=== PATIENT | male | born 1930 | race Caucasian/White ===

== ENCOUNTER 2016-07-01 19:15 | Inpatient (IN) | payer MEDICARE, OTHER ==
[~2016-07-01] VITALS: Ht 167.6 cm; Wt 84.0 kg
[2016-07-01 19:27] VITALS: BP 125/86; PULSE 88; TEMP 98.5
[2016-07-01] MEDS ORDERED: ASPIRIN 81M81 MG/TA2 PO (19:49)
[2016-07-01] MEDS ORDERED: PRILOSEC 20MG20 MG PO (19:50)
[2016-07-01] MEDS ORDERED: PROAIR HFA0.09 MG/AC IH (19:50)
[2016-07-01] MEDS ORDERED: BIOFREEZE 0.2%-1 GE1 TOP (19:51)
[2016-07-01] MEDS ORDERED: LIPITOR 10MG10 MG PO (19:51)
[2016-07-01] MEDS ORDERED: CLARITIN 1010 MG/TAB PO (19:51)
[2016-07-01] MEDS ORDERED: SINGULAIR 110 MG/TAB PO (19:53)
[2016-07-01] MEDS ORDERED: RESTASIS 60VL (19:54)
[2016-07-01] MEDS ORDERED: UROXATRAL10 M1 PO (19:55)
[2016-07-01] MEDS ORDERED: PRESERVISION1 SGL PO (19:55)
[2016-07-01 20:00] VITALS: BP 135/83; PULSE 81; TEMP 97.9
[2016-07-01 20:38] LABS: MAGNESIUM 2.2 mg/dL (1.6-2.3)
[2016-07-01 20:53] LABS: TROPONIN-I 0.057 ng/mL (0.000-0.034)
[2016-07-01 23:18] LABS: PH 7 (5-8); SQUAMOUS EPITHELIAL None Seen /hpf; URINE APPEARANCE Clear; URINE BACTERIA None Seen /hpf; URINE BILIRUBIN Negative (NEGATIVE); URINE BLOOD Negative (NEGATIVE); URINE COLOR Yellow; URINE GLUCOSE Negative (NEGATIVE); URINE KETONE Negative (NEGATIVE); URINE RBC 0-2 /hpf; URINE UROBILINOGEN Negative (NEGATIVE); URINE WBC 0-2 /hpf
[2016-07-01 23:51] LABS: PARTIAL THROMBOPLASTIN TIME 27.6 SECONDS (26.0-37.0)
[2016-07-02] VITALS (10 sets, daily range): BP systolic 102–141; BP diastolic 47–88; PULSE 65–89; TEMP 97.8–98.2
[2016-07-02 05:46] LABS: BASO % 0.3 % (0.0-2.0); EOS # 0.2 (0.0-0.7); EOS % 2.6 % (0-4.0); GRAN # 4.5 (1.4-6.5); GRAN % 62.1 % (42.2-75.2); HEMATOCRIT 36.2 % (42.0-52.0); HEMOGLOBIN 11.9 g/dl (13.5-18.0); LYMPH # 1.6 (1.2-3.4); LYMPH % 21.9 % (20.0-51.0); MEAN CELL VOLUME 87 fl (80.0-100.0); MEAN CORPUSCULAR HEMOGLOBIN 29 pg (27.0-31.0); MEAN CORPUSCULAR HGB CONC 33 g/dl (33.0-37.0); MEAN PLATELET VOLUME 9.8 fl (7.4-10.4); MONO # 0.9 (0.1-0.6); MONO % 12.7 % (1.7-9.3); PLATELET COUNT 154 K/mm3 (130-400); RED BLOOD COUNT 4.17 M/mm3 (4.20-5.60); REDCELL DISTRIBUTION WIDTH-CV 13.3 % (11.5-14.5); WHITE BLOOD COUNT 7.3 K/mm3 (4.8-10.8)
[2016-07-02 05:59] LABS: CALCIUM 8.7 mg/dL (8.4-10.2); CREATININE, serum 0.9 mg/dL (0.66-1.25); POTASSIUM 4.3 mmol/L (3.4-5.0)
[2016-07-02 06:12] LABS: TROPONIN-I 0.06 ng/mL (0.000-0.034)
[2016-07-03] VITALS (8 sets, daily range): BP systolic 105–173; BP diastolic 52–84; PULSE 47–72; TEMP 97.5–98.7
[2016-07-03 07:57] LABS: MEAN CELL VOLUME 88 fl (80.0-100.0); MEAN CORPUSCULAR HGB CONC 33 g/dl (33.0-37.0); MEAN PLATELET VOLUME 10.2 fl (7.4-10.4); PLATELET COUNT 185 K/mm3 (130-400); RED BLOOD COUNT 4.11 M/mm3 (4.20-5.60); REDCELL DISTRIBUTION WIDTH-CV 13.2 % (11.5-14.5); WHITE BLOOD COUNT 7.3 K/mm3 (4.8-10.8)
[2016-07-03 07:58] LABS: HEMOGLOBIN 11.9 g/dl (13.5-18.0); MEAN CORPUSCULAR HEMOGLOBIN 29 pg (27.0-31.0)
[2016-07-04 03:56] VITALS: BP 146/61; PULSE 82; TEMP 97.6
[2016-07-04 07:50] VITALS: BP 111/57; PULSE 43; TEMP 98.1
[2016-07-04 11:23] VITALS: BP 142/97; PULSE 68; TEMP 98.3
[2016-07-04] MEDS ORDERED: AMOXICILLIN 8751 TAB PO (12:39)
[2016-07-04] MEDS ORDERED: ZEBETA 5MG5 MG PO (12:39)
== END 2016-07-04 18:03 | disposition home or self-care (01) | DRG 261 ==
LOC: IMCU 19:15 → MEDICAL 07-02 19:40
PROVIDERS: Nurse Practitioner Family
PROC: 0JH632Z Insertion of Monitoring Device into Chest Subcutaneous Tissue and Fascia, Percutaneous Approach (ICD-10-PCS; principal; 2016-07-03)
DX: I95.1 Orthostatic hypotension (principal); S06.0X1A Concussion with loss of consciousness of 30 minutes or less, initial encounter; R47.01 Aphasia; I45.2 Bifascicular block; W18.30XA Fall on same level, unspecified, initial encounter; I10 Essential (primary) hypertension; J45.909 Unspecified asthma, uncomplicated; J06.9 Acute upper respiratory infection, unspecified; J01.01 Acute recurrent maxillary sinusitis; J01.21 Acute recurrent ethmoidal sinusitis; I25.10 Atherosclerotic heart disease of native coronary artery without angina pectoris; Z95.5 Presence of coronary angioplasty implant and graft; Z87.891 Personal history of nicotine dependence; F03.90 Unspecified dementia, unspecified severity, without behavioral disturbance, psychotic disturbance, mood disturbance, and anxiety
CPT/HCPCS: 99223-AI; 99233-AI; 99239; A9502; A9585; C1764; J1644; J1650; J2785; J7030

== ENCOUNTER 2017-01-27 16:15 | Inpatient (IN) | payer MEDICARE, OTHER ==
[~2017-01-27] VITALS: Ht 152.4 cm; Wt 83.6 kg
[~2017-01-27 16:15] MED LIST: AMOXICILLIN 8751 TAB PO; ASPIRIN 81M81 MG/TA2 PO; BIOFREEZE 0.2%-1 GE1 TOP; CLARITIN 1010 MG/TAB PO; LIPITOR 10MG10 MG PO; PRESERVISION1 SGL PO; PRILOSEC 20MG20 MG PO; PROAIR HFA0.09 MG/AC IH; RESTASIS 60VL; SINGULAIR 110 MG/TAB PO; UROXATRAL10 M1 PO; ZEBETA 5MG5 MG PO
[2017-02-11 08:35] VITALS: BP 127/65; PULSE 71; TEMP 97.9
[2017-02-11 09:40] LABS: HEMATOCRIT 38.4 % (42.0-52.0); HEMOGLOBIN 12.5 g/dl (13.5-18.0); MEAN CELL VOLUME 87 fl (80.0-100.0); MEAN CORPUSCULAR HEMOGLOBIN 28 pg (27.0-31.0); MEAN CORPUSCULAR HGB CONC 33 g/dl (33.0-37.0); MEAN PLATELET VOLUME 9.8 fl (7.4-10.4); PLATELET COUNT 173 K/mm3 (130-400); RED BLOOD COUNT 4.43 M/mm3 (4.20-5.60); REDCELL DISTRIBUTION WIDTH-CV 13.3 % (11.5-14.5)
[2017-02-11 09:44] LABS: INR 1.1 (0.8-3.0); PROTHROMBIN TIME 11.7 SECONDS (9.7-12.8)
[2017-02-11 09:54] LABS: ADJUSTED CALCIUM 9.2 mg/dL (8.4-10.2); BILIRUBIN,TOTAL 0.8 mg/dL (0.0-1.0); CALCIUM 9.2 mg/dL (8.4-10.2); CREATININE, serum 1.16 mg/dL (0.66-1.25); MAGNESIUM 2.2 mg/dL (1.6-2.3); POTASSIUM 4.2 mmol/L (3.4-5.0); TOTAL PROTEIN 7.6 gm/dL (6.4-8.2)
[2017-02-11 11:41] VITALS: BP 139/65; PULSE 64; TEMP 97.8
[2017-02-11 16:19] VITALS: BP 122/52; PULSE 64; TEMP 97.9
[2017-02-11 20:22] VITALS: BP 120/54; PULSE 63; TEMP 97.6
[2017-02-11 23:25] VITALS: BP 136/74; PULSE 66; TEMP 98
[2017-02-12 03:40] VITALS: BP 141/64; PULSE 62; TEMP 98
[2017-02-12 08:37] VITALS: BP 144/64; PULSE 60; TEMP 98.1
[2017-02-12 12:17] VITALS: BP 129/76; PULSE 64; TEMP 97.6
[2017-02-12 16:17] VITALS: BP 122/52; PULSE 68; TEMP 97.4
[2017-02-12 19:55] VITALS: BP 132/54; PULSE 61; TEMP 99.2
[2017-02-12 23:25] LABS: IEPS IGA 233 mg/dL (101-645); IEPS IGG 1531 mg/dL (540-1822); IEPS TP 7.2 g/dL (6.0-7.6)
[2017-02-12 23:37] VITALS: BP 124/59; PULSE 59; TEMP 98.1
[2017-02-13 03:35] VITALS: BP 144/63; PULSE 66; TEMP 98.2
[2017-02-13 08:00] VITALS: BP 122/59; PULSE 57; TEMP 97.7
[2017-02-13 11:09] VITALS: BP 136/53; PULSE 59; TEMP 97.8
[2017-02-13 15:25] VITALS: BP 148/94; PULSE 60; TEMP 97.6
[2017-02-13 20:10] VITALS: BP 126/54; PULSE 70; TEMP 97.5
[2017-02-13 23:43] VITALS: BP 127/59; PULSE 94; TEMP 97.6
[2017-02-14 04:23] VITALS: BP 148/52; PULSE 60; TEMP 97.4
[2017-02-14 08:50] VITALS: BP 148/52; PULSE 53; TEMP 98.1
[2017-02-14 12:32] VITALS: BP 132/55; PULSE 55; TEMP 97.5
[2017-02-14 12:38] LABS: CADMIUM BLOOD <0.2 ng/mL (0.0-4.9); MERCURY,SERUM <1 ng/mL (0-9)
[2017-02-14 14:06] LABS: .COPPER,S 1.39 mcg/mL (())
[2017-02-14 15:36] LABS: ALBUMIN FRACTION 3.6 g/dL (2.6-4.5); ALBUMIN PERCENT 49.7 % (48.7-61.8); ALPHA 1 FRACTION 0.4 g/dL (0.3-0.5); ALPHA 1 PERCENT 5.3 % (3.4-8.3); ALPHA 2 FRACTION 0.8 g/dL (0.6-1.2); BETA 1 FRACTION 0.4 g/dL (0.4-0.6); BETA 2 PERCENT 18.7 % (3.8-7.7); IEPS GAMMA FRACTION 0.7 g/dL (0.4-1.7); IEPS GAMMA PERCENTAGE 9.3 % (8.1-23.0); IEPS IGM 56 mg/dL (22-240); IEPS MON1E 1.2 g/dL (())
[2017-02-14 16:00] VITALS: BP 146/66; PULSE 50; TEMP 98.6
[2017-02-14 19:08] LABS: TISSUE TRANSGLU IGA <1.2 U/mL (()); TISSUE TRANSGLU IGG <1.2 U/mL (())
[2017-02-14 19:11] VITALS: BP 126/62; PULSE 53; TEMP 97.4
[2017-02-14 22:35] VITALS: BP 125/61; PULSE 57; TEMP 98
[2017-02-15 02:39] VITALS: BP 132/67; PULSE 46; TEMP 98.5
[2017-02-15 08:47] VITALS: BP 128/52; PULSE 55; TEMP 98
[2017-02-15 12:13] VITALS: BP 132/63; PULSE 86; TEMP 97
[2017-02-18 12:08] LABS: VITAMIN E 15.2 mg/L (())
== END 2017-02-15 13:13 | disposition home or self-care (01) | DRG 310 ==
LOC: MEDICAL 02-11 08:12
PROVIDERS: Internal Medicine Cardiovascular Disease; Psychiatry & Neurology Neurology
DX: I48.0 Paroxysmal atrial fibrillation (principal); I25.10 Atherosclerotic heart disease of native coronary artery without angina pectoris; Z95.5 Presence of coronary angioplasty implant and graft; I10 Essential (primary) hypertension; J45.909 Unspecified asthma, uncomplicated; G25.3 Myoclonus

== ENCOUNTER 2017-09-19 11:45 | Observation (INO) | payer MEDICARE, OTHER ==
[~2017-09-19] VITALS: Ht 167.6 cm; Wt 84.7 kg
[2017-09-19] MEDS ORDERED: LIPITOR 10MG10 MG PO (13:02)
[2017-09-19] MEDS ORDERED: PRINIVIL5 MG PO (13:46)
[2017-09-19 14:28] VITALS: BP 188/76; PULSE 79; TEMP 97.8
[2017-09-19 15:10] LABS: ARTERIAL BLD GAS O2 SATURATION 95.7 % (92-100); ARTERIAL BLOOD GAS BASE EXCESS -2.8 (-2-2); ARTERIAL BLOOD GAS PCO2 33.2 mmHg (35-45); ARTERIAL BLOOD GAS PO2 78.2 mmHg (80-100); ARTERIAL BLOOD GAS pH 7.42 (7.35-7.45)
[2017-09-19 17:02] LABS: HEMATOCRIT 37.6 % (42.0-52.0); HEMOGLOBIN 12.5 g/dl (13.5-18.0); MEAN CELL VOLUME 87 fl (80.0-100.0); MEAN CORPUSCULAR HEMOGLOBIN 29 pg (27.0-31.0); MEAN CORPUSCULAR HGB CONC 33 g/dl (33.0-37.0); MEAN PLATELET VOLUME 9.7 fl (7.4-10.4); PLATELET COUNT 168 K/mm3 (130-400); PROTHROMBIN TIME 11.7 SECONDS (9.7-12.8); RED BLOOD COUNT 4.34 M/mm3 (4.20-5.60); REDCELL DISTRIBUTION WIDTH-CV 13.6 % (11.5-14.5)
[2017-09-19 17:18] VITALS: BP 143/76; PULSE 74; TEMP 97.8
[2017-09-19 19:34] VITALS: BP 135/71; PULSE 86; TEMP 98
[2017-09-19 23:35] VITALS: BP 130/70; PULSE 71; TEMP 97.3
[2017-09-19 23:39] LABS: FOLATE (FOLIC ACID) 8.9 ng/mL (7.0-31.4)
[2017-09-20 03:43] VITALS: BP 120/74; PULSE 73; TEMP 97.7
[2017-09-20 07:40] LABS: CALCIUM 8.8 mg/dL (8.4-10.2); CHOLESTEROL RISK RATIO 4.1; CREATININE, serum 1.01 mg/dL (0.66-1.25); POTASSIUM 4.4 mmol/L (3.4-5.0)
[2017-09-20 07:58] VITALS: BP 126/59; PULSE 61; TEMP 97.6
[2017-09-20 11:03] VITALS: BP 177/73; PULSE 65
[2017-09-20 15:20] VITALS: BP 123/57; PULSE 90; TEMP 98.6
[2017-09-20] MEDS ORDERED: LIPITOR 80MG80 MG PO (15:52)
[2017-09-20] MEDS ORDERED: ULTRAM 50MG TAB50 MG PO (15:53)
[2017-09-20] MEDS ORDERED: NEURONTIN100 MG/CAP PO (15:53)
[2017-09-20] MEDS ORDERED: B-121000 MCG PO (15:54)
[2017-09-20] MEDS ORDERED: FOLIC ACID 11 MG/TA1 PO (15:54)
== END 2017-09-20 17:38 | disposition home or self-care (01) ==
LOC: MEDICAL 11:45
PROVIDERS: Internal Medicine; Physician Assistant
DX: M79.602 Pain in left arm (principal); R47.01 Aphasia; R25.9 Unspecified abnormal involuntary movements; R20.2 Paresthesia of skin; I10 Essential (primary) hypertension; R79.9 Abnormal finding of blood chemistry, unspecified; E87.1 Hypo-osmolality and hyponatremia; E78.5 Hyperlipidemia, unspecified; J45.909 Unspecified asthma, uncomplicated; I25.2 Old myocardial infarction; Z88.8 Allergy status to other drugs, medicaments and biological substances; Z88.5 Allergy status to narcotic agent; Z79.82 Long term (current) use of aspirin; I25.10 Atherosclerotic heart disease of native coronary artery without angina pectoris; Z79.02 Long term (current) use of antithrombotics/antiplatelets; Z98.61 Coronary angioplasty status
CPT/HCPCS: 99222-AI; 99239; J1644; J3420